=== PATIENT | female | born 1990 | race African-American/Black ===

== ENCOUNTER 2016-08-20 06:49 | Emergency (ER) | payer SELFPAY ==
[~2016-08-20] VITALS: Ht 167.6 cm; Wt 55.0 kg
[~2016-08-20 06:49] MED LIST: DEPO150I IM; FERR324T4 PO
[2016-08-20 06:54] VITALS: BP 116/58; PULSE 92; RESP 16; TEMP 98.1; O2SAT 82
[2016-08-20] MEDS ORDERED: ALBU1.25 NEB (06:57)
[2016-08-20 07:00] VITALS: BP 108/57; PULSE 91; RESP 15; O2SAT 100
[2016-08-20] MEDS ORDERED: predniSONE 50 MG TAB PO ONE (07:00)
[2016-08-20] MEDS ORDERED: ALBU0.08 NEB (07:09)
[2016-08-20] MEDS ORDERED: PRED20 PO (07:09)
--- NOTE | 2016-08-20 07:09 | PD ---
HPI Chief Complaint: Respiratory Distress Time Seen by Provider: 06:58 Travel History International Travel<30 days: No Contact w/Intl Traveler<30days: No Traveled to known affect area: No History of Present Illness HPI This is a 25-year-old female who has a history of asthma who presents to the emergency department with increasing shortness of breath it's been progressing and worsening over the past 2 days, constant, associated with a dry cough. She denies any fevers or chills. She has had some rhinorrhea. She says she tried to use her nebulizer this morning but she didn't have a mask for it so wasn't working. She called EMS and EMS administered to do an abscess and she feels much better. She says she has been hospitalized for her asthma in the past. PFSH Past Medical History Hx Anticoagulant Therapy: No Asthma: Yes Cardiovascular Problems: No Chemotherapy: No Cerebrovascular Accident: No Diabetes: No Diminished Hearing: No Respiratory: Yes (asthma) Immunizations Current: Yes ?: Not LMP: 07/23/16 : 3 Para: 3 Social History Alcohol Use: No Tobacco Use: No Substance Use: No Allergies-Medications (Allergen,Severity, Reaction): Coded Allergies: *MDRO Multi-Drug Resistant Organism (Verified Adverse Reaction, Unknown, ) MRSA (wounds) - 03/24/06, 01/16/12 MRSA PCR screen (nares) negative - 02/20/16 & 02/22/16 Cleared per Infection Control Reported Meds & Prescriptions Reported Meds & Active Scripts Active Reported Albuterol Neb (Albuterol Sulfate) 1.25 Mg/3 Ml Neb 1.25 Mg NEB Q4HR NEB PRN Review of Systems Except as stated in HPI: all other systems reviewed are Neg Physical Exam Narrative GENERAL: Well-nourished, well-developed patient. SKIN: Warm and dry. HEAD: Normocephalic. EYES: No scleral icterus. No injection or drainage. ENT: Rhinorrhea NECK: Supple, trachea midline. CARDIOVASCULAR: Regular rate and rhythm without murmurs. RESPIRATORY: Mild expiratory wheeze, speaking full sentences with no accessory muscle use GASTROINTESTINAL: Abdomen soft, non-tender, nondistended. MUSCULOSKELETAL: No cyanosis, or edema. Data Data Last Documented VS Vital Signs Date Time Temp Pulse Resp B/P Pulse Ox O2 Delivery O2 Flow Rate FiO2 08/20/16 07:00 91 15 108/57 100 Room Air 08/20/16 06:54 98.1 Orders Prednisone (Deltasone) (08/20/16 07:00) [facility] Medical Decision Making Medical Screen Exam Complete: Yes Emergency Medical Condition: Yes Interpretation(s) 100% on room air Differential Diagnosis Acute asthma exacerbation, viral upper respiratory infection, pneumonia Narrative Course This is a 25-year-old female who presents to the emergency department with an exacerbation of her asthma. She improved significantly with bronchodilator treatment from EMS. She was placed on a monitor and her pulse ox was 100% on room air. She is speaking full sentences. I think she is appropriate for outpatient management. She was given a dose of oral prednisone and will be discharged with 4 days of prednisone in addition to some albuterol cartridges. Diagnosis Primary Impression: Acute asthma exacerbation Qualified Code: J45.21 - Mild intermittent asthma with acute exacerbation Patient Instructions: General Instructions Additional Instructions: If you develop severe shortness of breath, chest pain, or difficulty breathing return to the emergency department. Use albuterol every 4 hours for the next 2 days. Then use as needed for wheezing. Complete your course of steroids. Follow up with your primary care physician in 2-3 days if your symptoms have not improved. Med/Other Pt SpecificInfo: Prescription(s) given Scripts Albuterol Neb 2.5 Mg/3 Ml Neb2.5 Mg NEB Q4HR NEB PRN (SHORTNESS OF BREATH) #60 NEBULE Ref 0 Prov:Geraldine Giron MD 08/20/16 Prednisone 20 Mg Tab40 Mg PO DAILY 4 Days Prov:Geraldine Giron MD 08/20/16 Disposition: 01 DISCHARGE HOME Condition: Stable Geraldine Giron MD Aug 20, 2016 07:09
== END 2016-08-20 07:25 | disposition home or self-care (01) ==
LOC: NEPC 06:49
DX: J45.901 Unspecified asthma with (acute) exacerbation (principal)
CPT/HCPCS: 99283; J7512

== ENCOUNTER 2016-11-18 17:10 | Emergency (ER) | payer SELFPAY ==
[~2016-11-18] VITALS: Ht 165.1 cm; Wt 53.8 kg
[~2016-11-18 17:10] MED LIST changes: +ALBU0.08 NEB; +ALBU1.25 NEB; -FERR324T4 PO; +PRED20 PO
[2016-11-18 17:11] VITALS: BP 113/56; PULSE 70; RESP 16; TEMP 98.8; O2SAT 100
--- NOTE | 2016-11-18 17:44 | PD ---
Physical Exam Time Seen by Provider: 17:41 Narrative Pt presents for evaluation of light vaginal bleeding since her last menstrual cycle October 21 and has been having associated lower abdominal pain. Rates it a 6 /10 No vaginal discharge. Does not believe she is , but has unprotected intercourse. Pt is 8 months vaginal . No urinary symptoms. Has history of asthma; otherwise no other medical history. Data Data Last Documented VS Vital Signs Date Time Temp Pulse Resp B/P Pulse Ox O2 Delivery O2 Flow Rate FiO2 11/18/16 17:11 98.8 70 16 113/56 100 Room Air [facility] Medical Record Reviewed: Yes Supervised Visit with WILLIAM: No Narrative Course 25 year old presents to ED for evaluation of vaginal bleeding; light and intermittent since menses in October. Appears well. VSS Condition: Stable Carolyne Knox Nov 18, 2016 17:44
[2016-11-18] MEDS ORDERED: SODIUM CHLORIDE 0.9% FLUSH 10 ML FLUSH IVF PRN (18:45)
--- NOTE | 2016-11-18 18:46 | PD ---
HPI Chief Complaint: Abdominal Pain Time Seen by Provider: 18:43 Travel History International Travel<30 days: No Contact w/Intl Traveler<30days: No Traveled to known affect area: No History of Present Illness HPI Patient is a 25-year-old female presenting to emergency room evaluation of vaginal bleeding, lower abdominal pain. Patient states that she started spotting since her last menstrual period on October 21, 2016. She states the amount of blood is small and notices it when she wipes. She has had unprotected sexual intercourse since that time. She denies any vaginal discharge or odor. She is not on any oral contraception. She states the pain is cramping in nature and located on the suprapubic region to right lower quadrant. She reports her pain as a 5 out of 10 at times. He denies any nausea , vomiting, chest pain, shortness of breath, fever, chills. PFSH Past Medical History Hx Anticoagulant Therapy: No Asthma: Yes Cardiovascular Problems: No Chemotherapy: No Cerebrovascular Accident: No Diabetes: No Diminished Hearing: No Respiratory: Yes (ASTHMA) Immunizations Current: Yes : 3 Para: 3 Social History Alcohol Use: No Tobacco Use: No Substance Use: No Allergies-Medications (Allergen,Severity, Reaction): Coded Allergies: *MDRO Multi-Drug Resistant Organism (Verified Adverse Reaction, Unknown, ) MRSA (wounds) - 03/24/06, 01/16/12 MRSA PCR screen (nares) negative - 02/20/16 & 02/22/16 Cleared per Infection Control Reported Meds & Prescriptions Reported Meds & Active Scripts Active Albuterol Neb (Albuterol Sulfate) 2.5 Mg/3 Ml Neb 2.5 Mg NEB Q4HR NEB PRN Reported Albuterol Neb (Albuterol Sulfate) 1.25 Mg/3 Ml Neb 1.25 Mg NEB Q4HR NEB PRN Review of Systems Except as stated in HPI: all other systems reviewed are Neg General / Constitutional: No: Fever HENT: No: Headaches Cardiovascular: No: Chest Pain or Discomfort Respiratory: No: Shortness of Breath Gastrointestinal: Positive: Abdominal Pain, No: Nausea, Vomiting Genitourinary: Positive: Pelvic Pain, Vaginal Bleeding, No: Dysuria Neurologic: No: Dizziness, Syncope Physical Exam Narrative GENERAL: Well-nourished, well-developed patient. SKIN: Focused skin assessment warm/dry. HEAD: Normocephalic. EYES: No scleral icterus. No injection or drainage. NECK: Supple, trachea midline. No JVD or lymphadenopathy. CARDIOVASCULAR: Regular rate and rhythm without murmurs, gallops, or rubs. RESPIRATORY: Breath sounds equal bilaterally. No accessory muscle use. GASTROINTESTINAL: Abdomen soft, tender to palpation in right suprapubic/lower quadrant. Positive bowel sounds, no rebound, positive guarding. MUSCULOSKELETAL: No cyanosis, or edema. BACK: Nontender without obvious deformity. No CVA tenderness. GENITOURINARY: No dysuria, no frequency, no vaginal discharge. Scant amount of blood noted in vaginal vault and cervix. Mildly tender to palpation on bimanual examination. No masses noted on bimanual examination to the adnexa or uterus. Data Data Last Documented VS Vital Signs Date Time Temp Pulse Resp B/P Pulse Ox O2 Delivery O2 Flow Rate FiO2 11/18/16 22:58 59 16 106/63 11/18/16 17:11 98.8 100 Room Air Orders Ua Includes Microscopic (11/18/16 18:32) Ed Urine Pregnancytest Poc (11/18/16 18:32) Complete Blood Count With Diff (11/18/16 18:42) Basic Metabolic Panel (Bmp) (11/18/16 18:42) Gc And Chlamydia Pcr (11/18/16 18:42) Wet Prep Profile (11/18/16 18:42) Iv Access Insert/Monitor (11/18/16 18:42) Sodium Chloride 0.9% Flush (Ns Flush) (11/18/16 18:45) Thyroid Stimulating Hormone (11/18/16 18:42) Urine Culture (11/18/16 19:46) Us Pelvis Comp W Doppler (11/18/16 ) Labs Laboratory Tests Test 11/18/16 11/18/16 19:10 20:20 White Blood Count 6.7 TH/MM3 Red Blood Count 4.14 MIL/MM3 Hemoglobin 12.3 GM/DL Hematocrit 37.0 % Mean Corpuscular Volume 89.4 FL Mean Corpuscular Hemoglobin 29.8 PG Mean Corpuscular Hemoglobin 33.3 % Concent Red Cell Distribution Width 14.8 % Platelet Count 280 TH/MM3 Mean Platelet Volume 10.4 FL Neutrophils (%) (Auto) 46.8 % Lymphocytes (%) (Auto) 38.2 % Monocytes (%) (Auto) 7.1 % Eosinophils (%) (Auto) 7.3 % Basophils (%) (Auto) 0.6 % Neutrophils # (Auto) 3.1 TH/MM3 Lymphocytes # (Auto) 2.6 TH/MM3 Monocytes # (Auto) 0.5 TH/MM3 Eosinophils # (Auto) 0.5 TH/MM3 Basophils # (Auto) 0.0 TH/MM3 CBC Comment DIFF FINAL Differential Comment Urine Color YELLOW Urine Turbidity HAZY Urine pH 6.0 Urine Specific [place] 1.028 Urine Protein NEG mg/dL Urine Glucose (UA) NEG mg/dL Urine Ketones NEG mg/dL Urine Occult Blood SMALL Urine Nitrite NEG Urine Bilirubin NEG Urine Urobilinogen 2.0 MG/DL Urine Leukocyte Esterase SMALL Urine RBC 1 /hpf Urine WBC 9 /hpf Urine Squamous Epithelial 5 /hpf Cells Urine Mucus FEW /lpf Microscopic Urinalysis Comment Sodium Level 137 MEQ/L Potassium Level 4.2 MEQ/L Chloride Level 107 MEQ/L Carbon Dioxide Level 24.9 MEQ/L Anion Gap 5 MEQ/L Blood Urea Nitrogen 13 MG/DL Creatinine 0.84 MG/DL Estimat Glomerular Filtration 102 ML/MIN Rate Random Glucose 87 MG/DL Calcium Level 8.5 MG/DL Thyroid Stimulating Hormone 0.771 uIU/ML 3rd Gen Chlamydia trachomatis DNA DETECTED (PCR) Neisseria gonorrhoeae DNA NOT DETECTED (PCR) Clue Cells (Wet Prep) NONE SEEN Vaginal Trichomonas (Wet Prep) NONE SEEN Vaginal Yeast (Wet Prep) NONE SEEN MDM Medical Decision Making Medical Screen Exam Complete: Yes Emergency Medical Condition: Yes Interpretation(s) Vital Signs Date Time Temp Pulse Resp B/P Pulse Ox O2 Delivery O2 Flow Rate FiO2 11/18/16 17:11 98.8 70 16 113/56 100 Room Air Differential Diagnosis Dysfunctional uterine bleeding versus urinary tract infection versus STI versus ovarian cyst versus ovarian torsion versus other Narrative Course Patient is a 25-year-old female presenting to the emergency department for evaluation of pelvic pain and vaginal spotting. Vital signs are stable. Labs and imaging ordered and pending. Wet prep is negative, ultrasound pending. Care of patient transferred to my attending physician who will determine patient 's disposition. Condition: Stable Leann Deluca [facility] Nov 18, 2016 18:46
[2016-11-18 19:25] LABS: AUTOMATED NEUTROPHIL # 3.1 TH/MM3 (1.8-7.7); BASOPHIL % 0.6 % (0.0-2.0); EOSINOPHIL # 0.5 TH/MM3 (0-0.4); EOSINOPHIL % 7.3 % (0.0-4.0); HEMO FLAGS DIFF FINAL; LYMPH % 38.2 % (9.0-44.0); LYMPHOCYTE # 2.6 TH/MM3 (1.0-4.8); MEAN CELL VOLUME 89.4 FL (80.0-100.0); MEAN CORPUSCULAR HEMOGLOBIN 29.8 PG (27.0-34.0); MEAN CORPUSCULAR HGB CONC 33.3 % (32.0-36.0); MONO % 7.1 % (0.0-8.0); NEUT % 46.8 % (16.0-70.0); PLATELET COUNT 280 TH/MM3 (150-450); RED BLOOD COUNT 4.14 MIL/MM3 (4.00-5.30); RED CELL DISTRIBUTION WIDTH 14.8 % (11.6-17.2); WHITE BLOOD COUNT 6.7 TH/MM3 (4.0-11.0)
[2016-11-18 19:27] LABS: BLOOD, URINE SMALL (NEG); GLUCOSE,URINE NEG (NEG); KETONE, URINE NEG (NEG); MUCUS URINE FEW /lpf (OCC); NITRITE,URINE NEG (NEG); SQUAMOUS EPITHELIAL CELL URINE 5 /hpf (0-5); URINE COLOR YELLOW (YELLW/STRAW)
[2016-11-18 20:00] LABS: BICARBONATE 24.9 MEQ/L (21.0-32.0); POTASSIUM 4.2 MEQ/L (3.5-5.1)
--- NOTE | 2016-11-18 21:35 | RADRPT ---
EXAM DATE/TIME: 11/18/2016 20:09 [place] COMPARISON: No previous studies available for comparison. INDICATIONS : Pelvic pain. MEDICAL HISTORY : . Miscarriage. Asthma. SURGICAL HISTORY : None. ENCOUNTER: Subsequent ACUITY: 3 days PAIN SCORE: 6/10 LOCATION: Bilateral pelvis MEASUREMENTS: UTERUS: 9.5 x 6.7 x 5.2 cm ENDOMETRIAL STRIPE: 10 mm RIGHT OVARY: 3.7 x 3.2 x 2.7 cm LEFT OVARY: 3.9 x 2.3 x 2.4 cm FINDINGS: UTERUS: The myometrium has homogeneous echotexture without mass. RIGHT OVARY: 2.5 x 2.4 x 2.3 cm cyst containing mild debris. LEFT OVARY: Ovary contains no mass or significant cystic lesion. MISCELLANEOUS: No free fluid. CONCLUSION: 2.5 cm right ovarian cyst. This is probably physiologic in a patient this age. Followup ultrasound co uld be done in 8-12 weeks to confirm resolution if felt clinically indicated. Conrado Schmidt MD on November 18, 2016 at 21:31 Board Certified Radiologist. This report was verified electronically.
--- NOTE | 2016-11-18 22:38 | PD ---
Data Data Last Documented VS Vital Signs Date Time Temp Pulse Resp B/P Pulse Ox O2 Delivery O2 Flow Rate FiO2 11/18/16 17:11 98.8 70 16 113/56 100 Room Air Orders Ua Includes Microscopic (11/18/16 18:32) Ed Urine Pregnancytest Poc (11/18/16 18:32) Complete Blood Count With Diff (11/18/16 18:42) Basic Metabolic Panel (Bmp) (11/18/16 18:42) Gc And Chlamydia Pcr (11/18/16 18:42) Wet Prep Profile (11/18/16 18:42) Iv Access Insert/Monitor (11/18/16 18:42) Sodium Chloride 0.9% Flush (Ns Flush) (11/18/16 18:45) Thyroid Stimulating Hormone (11/18/16 18:42) Urine Culture (11/18/16 19:46) Us Pelvis Comp W Doppler (11/18/16 ) Labs Laboratory Tests Test 11/18/16 11/18/16 19:10 20:20 White Blood Count 6.7 TH/MM3 Red Blood Count 4.14 MIL/MM3 Hemoglobin 12.3 GM/DL Hematocrit 37.0 % Mean Corpuscular Volume 89.4 FL Mean Corpuscular Hemoglobin 29.8 PG Mean Corpuscular Hemoglobin 33.3 % Concent Red Cell Distribution Width 14.8 % Platelet Count 280 TH/MM3 Mean Platelet Volume 10.4 FL Neutrophils (%) (Auto) 46.8 % Lymphocytes (%) (Auto) 38.2 % Monocytes (%) (Auto) 7.1 % Eosinophils (%) (Auto) 7.3 % Basophils (%) (Auto) 0.6 % Neutrophils # (Auto) 3.1 TH/MM3 Lymphocytes # (Auto) 2.6 TH/MM3 Monocytes # (Auto) 0.5 TH/MM3 Eosinophils # (Auto) 0.5 TH/MM3 Basophils # (Auto) 0.0 TH/MM3 CBC Comment DIFF FINAL Differential Comment Urine Color YELLOW Urine Turbidity HAZY Urine pH 6.0 Urine Specific [place] 1.028 Urine Protein NEG mg/dL Urine Glucose (UA) NEG mg/dL Urine Ketones NEG mg/dL Urine Occult Blood SMALL Urine Nitrite NEG Urine Bilirubin NEG Urine Urobilinogen 2.0 MG/DL Urine Leukocyte Esterase SMALL Urine RBC 1 /hpf Urine WBC 9 /hpf Urine Squamous Epithelial 5 /hpf Cells Urine Mucus FEW /lpf Microscopic Urinalysis Comment Sodium Level 137 MEQ/L Potassium Level 4.2 MEQ/L Chloride Level 107 MEQ/L Carbon Dioxide Level 24.9 MEQ/L Anion Gap 5 MEQ/L Blood Urea Nitrogen 13 MG/DL Creatinine 0.84 MG/DL Estimat Glomerular Filtration 102 ML/MIN Rate Random Glucose 87 MG/DL Calcium Level 8.5 MG/DL Thyroid Stimulating Hormone 0.771 uIU/ML 3rd Gen Clue Cells (Wet Prep) NONE SEEN Vaginal Trichomonas (Wet Prep) NONE SEEN Vaginal Yeast (Wet Prep) NONE SEEN MDM Medical Record Reviewed: Yes Supervised Visit with WILLIAM: Yes Narrative Course I, Dr. Graves, have reviewed the advance practice practitioner's documentation and am in agreement, met with the patient face to face, made the diagnosis, and the medical decision making was done by me. *My assessment and Findings: CBC & BMP Diagram 11/18/16 19:10 Urinalysis: Possible UTI Last 24 hours Impressions Pelvis Ultrasound 11/18/16 0000 Signed Impressions: Service Date/Time: Friday, November 18, 2016 20:09 - CONCLUSION: 2.5 cm right ovarian cyst. This is probably physiologic in a patient this age. Followup ultrasound could be done in 8-12 weeks to confirm resolution if felt clinically indicated. Conrado Schmidt MD Patient in the right ovarian cyst. Follow-up in 8-12 weeks discussed. Return precautions discussed. Diagnosis Primary Impression: Right ovarian cyst Additional Impressions: Cystitis Vaginal bleeding Referrals: Primary Care Physician 2 days Additional Instruction: You have a choice when it comes to health care, and we are glad that you chose [facility]. Hopefully, we have met your expectations on today's visit. You are welcome to return to [facility] at any time, as we are committed to meeting the health care needs of our community. Med/Other Pt SpecificInfo: No Change to Meds Disposition: 01 DISCHARGE HOME Condition: Stable Rodney Graves MD Nov 18, 2016 22:38
[2016-11-18 22:58] VITALS: BP 106/63
[2016-11-18 23:26] LABS: CHLAMYDIA PCR DETECTED (NOT DETECT); NEISSERIA PCR NOT DETECTED (NOT DETECT)
== END 2016-11-18 22:57 | disposition home or self-care (01) ==
LOC: NEPD 17:10
DX: N83.201 Unspecified ovarian cyst, right side (principal); N30.90 Cystitis, unspecified without hematuria; N93.9 Abnormal uterine and vaginal bleeding, unspecified; R10.30 Lower abdominal pain, unspecified; J45.909 Unspecified asthma, uncomplicated
CPT/HCPCS: 76856; 80048; 81001; 84443; 84703; 85025; 87086; 87210; 87491; 87591; 93975

== ENCOUNTER 2017-01-28 20:38 | Emergency (ER) | payer MEDICAID ==
[~2017-01-28] VITALS: Ht 167.6 cm; Wt 57.0 kg
[~2017-01-28 20:38] MED LIST changes: -PRED20 PO
[2017-01-28 20:40] VITALS: BP 129/61; PULSE 66; RESP 16; TEMP 97.7; O2SAT 100
--- NOTE | 2017-01-28 20:43 | PD ---
Physical Exam Date Seen by Provider: Jan 28, 2017 Time Seen by Provider: 20:41 Narrative 26 yo female that presents to the ED for evaluation of chest pain and abdominal pain. Started today. No injury. No history of prior. Pain is 6/10. No precipitating factors. No fevers. No SOB. She is . Vital signs stable in triage. Awaiting bed placement. Data Data Last Documented VS Vital Signs Date Time Temp Pulse Resp B/P Pulse Ox O2 Delivery O2 Flow Rate FiO2 01/28/17 20:40 97.7 66 16 129/61 100 Room Air [facility] Medical Record Reviewed: Yes Supervised Visit with WILLIAM: No Lucho Lang Jan 28, 2017 20:43
--- NOTE | 2017-01-28 22:10 | PD ---
HPI Chief Complaint: Chest Pain Time Seen by Provider: 22:10 Travel History International Travel<30 days: No Contact w/Intl Traveler<30days: No Traveled to known affect area: No History of Present Illness HPI The patient is a 26 year old female who presents to the [facility] emergency department with a history of midepigastric abdominal pain that she reports that began at approximately noon today. The patient reports that the pain as a 7 out of 10 in severity currently. She reports that the pain comes and goes. She denies having any alleviating or aggravating factors. She reports that she has not eaten related to the pain. The patient reports that she is also . She reports that she took a positive test on December 29. She has not had her initial point with her [employer]. She is a with 1 miscarriage previously. She reports that 2 days ago she did have some vaginal spotting, however she was not concerned as she had this with her last . She denies having any other vaginal discharge. She is unsure of her blood type. She denies having any nausea or vomiting. She denies having any diarrhea. She reports that she last moved her bowels earlier today. She denies having any blood in her stool or black or tarry stools. The patient reports that the pain as a sharp pain. She denies having any shortness of breath. On review of systems, the patient denies any recent fevers, cough, congestion, neck pain, urinary symptoms, or neurologic symptoms. LMP: In November Past Medical History Narrative Medical The patient's past medical history is significant for asthma. Hx Anticoagulant Therapy: No Asthma: Yes Cardiovascular Problems: No Chemotherapy: No Cerebrovascular Accident: No Diabetes: No Diminished Hearing: No Respiratory: Yes (ASTHMA) Immunizations Current: Yes : 3 Para: 3 Past Surgical History Narrative Surgical The patient's past surgical history is reportedly none. Social History Alcohol Use: No Tobacco Use: No Substance Use: No Allergies-Medications (Allergen,Severity, Reaction): Coded Allergies: *MDRO Multi-Drug Resistant Organism (Verified Adverse Reaction, Unknown, ) MRSA (wounds) - 03/24/06, 01/16/12 MRSA PCR screen (nares) negative - 02/20/16 & 02/22/16 Cleared per Infection Control Reported Meds & Prescriptions Reported Meds & Active Scripts Active Flagyl (Metronidazole) 500 Mg Tab 500 Mg PO BID 7 Days Keflex (Cephalexin) 500 Mg Cap 500 Mg PO Q8H Reported Ventolin Hfa 18 GM Inh (Albuterol Sulfate) 90 Mcg/Act Aer 2 Puff INH Q4-6H PRN Albuterol Neb (Albuterol Sulfate) 1.25 Mg/3 Ml Neb 1.25 Mg NEB Q4HR NEB PRN Review of Systems Except as stated in HPI: all other systems reviewed are Neg General / Constitutional: No: Fever Eyes: No: Visual changes HENT: No: Headaches Cardiovascular: No: Chest Pain or Discomfort Respiratory: No: Shortness of Breath Gastrointestinal: Positive: Abdominal Pain, Indigestion, No: Nausea, Vomiting , Diarrhea, Hematemesis, Hematochezia, Changes in Bowel Habits, Loss of Appetite Genitourinary: Positive: Vaginal Bleeding, No: Dysuria Musculoskeletal: No: Pain Skin: No Rash Neurologic: No: Weakness Psychiatric: No: Depression Endocrine: No: Polydipsia Hematologic/Lymphatic: No: Easy Bruising Physical Exam Narrative General: The patient is a well-developed well-nourished female in no acute distress. Head and Neck exam: Head is normocephalic atraumatic. Eyes: EOMI, pupils are equal round and reactive to light. Nose: Midline septum with pink mucous membranes Mouth: Dentition unremarkable. Moist mucus membranes. Posterior oropharynx is not erythematous. No tonsillar hypertrophy. Uvula midline. Airway patent. Neck: No palpable lymphadenopathy. No nuchal rigidity. No thyromegaly. Cardiovascular: Regular rate and rhythm without murmurs, gallops, or rubs. Lungs: Clear to auscultation bilaterally. No wheezes, rhonchi, or rales. Abdomen: Soft, with midepigastric abdominal discomfort on palpation, suprapubic abdominal discomfort on palpation, no other tenderness on palpation of the other quadrants of the abdomen. No guarding, rebound, or rigidity. Negative [place] sign. No tenderness on palpation of McBurney's point. Normal bowel sounds are audible. Extremities: No clubbing, cyanosis, or edema. 2+ pulses in all 4 extremities. No calf tenderness on palpation. Negative Hom[place] sign. Back: No spinous process tenderness to palpation. No costovertebral angle tenderness to palpation. Neurologic Exam: Grossly nonfocal. Skin Exam: No rash noted. Intact skin that is warm and dry. Gynecologic exam: The patient was placed in the dorsal lithotomy position. Her external genitalia were examined. She had no evidence of rash or lesions. The speculum was placed into her vagina and the cervix was identified. She had a yellow discharge noted discharge. Cervical friability is noted. On Bimanual exam: she has no cervical motion tenderness. No adnexal tenderness or prominence noted on palpation. No uterine tenderness, however enlargement is noted on palpation. Data Data Last Documented VS Vital Signs Date Time Temp Pulse Resp B/P Pulse Ox O2 Delivery O2 Flow Rate FiO2 01/28/17 20:40 97.7 66 16 129/61 100 Room Air Orders Beta Hcg (Quant/Titer) (01/28/17 22:18) Complete Blood Count With Diff (01/28/17 22:18) Comprehensive Metabolic Panel (01/28/17 22:18) Gc And Chlamydia Pcr (01/28/17 22:18) Complete Rh (01/28/17 22:18) Wet Prep Profile (01/28/17 22:18) Urinalysis - C+S If Indicated (01/28/17 22:18) Iv Access Insert/Monitor (01/28/17 22:18) Ecg Monitoring (01/28/17 22:18) Sodium Chlor 0.9% 1000 Ml Inj (Ns 1000 M (01/28/17 22:18) Ed Urine Pregnancytest Poc (01/28/17 22:18) Electrocardiogram (01/28/17 22:18) Lipase (01/28/17 22:18) Magnesium (Mg) (01/28/17 22:18) Urine Culture (01/28/17 22:45) Ceftriaxone Inj (Rocephin Inj) (01/29/17 00:15) Ed Poc Ultrasound (01/29/17 00:07) Us Pelvis Preg(Sgl/ Gestat) (01/29/17 ) Azithromycin Powd Pack (Zithromax Powd P (01/29/17 01:30) Labs Laboratory Tests Test 01/28/17 01/28/17 01/29/17 22:30 22:45 00:20 White Blood Count 10.7 TH/MM3 Red Blood Count 3.84 MIL/MM3 Hemoglobin 11.5 GM/DL Hematocrit 34.3 % Mean Corpuscular Volume 89.3 FL Mean Corpuscular Hemoglobin 30.0 PG Mean Corpuscular Hemoglobin 33.6 % Concent Red Cell Distribution Width 14.2 % Platelet Count 294 TH/MM3 Mean Platelet Volume 10.2 FL Neutrophils (%) (Auto) 65.3 % Lymphocytes (%) (Auto) 26.9 % Monocytes (%) (Auto) 6.1 % Eosinophils (%) (Auto) 1.2 % Basophils (%) (Auto) 0.5 % Neutrophils # (Auto) 7.0 TH/MM3 Lymphocytes # (Auto) 2.9 TH/MM3 Monocytes # (Auto) 0.7 TH/MM3 Eosinophils # (Auto) 0.1 TH/MM3 Basophils # (Auto) 0.1 TH/MM3 CBC Comment DIFF FINAL Differential Comment Sodium Level 135 MEQ/L Potassium Level 3.7 MEQ/L Chloride Level 105 MEQ/L Carbon Dioxide Level 20.3 MEQ/L Anion Gap 10 MEQ/L Blood Urea Nitrogen 14 MG/DL Creatinine 0.48 MG/DL Estimat Glomerular Filtration 192 ML/MIN Rate Random Glucose 83 MG/DL Calcium Level 8.6 MG/DL Magnesium Level 1.9 MG/DL Total Bilirubin 0.5 MG/DL Aspartate Amino Transf 14 U/L (AST/SGOT) Alanine Aminotransferase 16 U/L (ALT/SGPT) Alkaline Phosphatase 47 U/L Total Protein 7.8 GM/DL Albumin 3.5 GM/DL Lipase 319 U/L Human Chorionic Gonadotropin, [id number] MIU/ML Quant Blood Type B POSITIVE Rho(D) Type POSITIVE Urine Color YELLOW Urine Turbidity HAZY Urine pH 6.0 Urine Specific [place] 1.033 Urine Protein TRACE mg/dL Urine Glucose (UA) NEG mg/dL Urine Ketones NEG mg/dL Urine Occult Blood NEG Urine Nitrite NEG Urine Bilirubin NEG Urine Urobilinogen LESS THAN 2.0 MG/DL Urine Leukocyte Esterase LARGE Urine RBC 5 /hpf Urine WBC 13 /hpf Urine Squamous Epithelial 5 /hpf Cells Urine Bacteria RARE /hpf Urine Mucus MANY /lpf Microscopic Urinalysis Comment CULTURE INDICATED Clue Cells (Wet Prep) NONE SEEN Vaginal Trichomonas (Wet Prep) PRESENT Vaginal Yeast (Wet Prep) NONE SEEN Chlamydia trachomatis DNA NOT DETECTED (PCR) Neisseria gonorrhoeae DNA NOT DETECTED (PCR) MDM Medical Decision Making Medical Screen Exam Complete: Yes Emergency Medical Condition: Yes Medical Record Reviewed: Yes Interpretation(s) Last Impressions Obstetrics Ultrasound 01/29/17 0000 Signed Impressions: Service Date/Time: Sunday, January 29, 2017 00:18 - CONCLUSION: Viable intrauterine dated between 9 and 10 weeks. Varinder Larkin MD Differential Diagnosis Gastritis, versus peptic ulcer disease, versus acid reflux, versus cystitis, versus ectopic , versus cervicitis, versus gonorrhea, versus chlamydia , versus trichomoniasis, versus yeast vaginitis Narrative Course During the course of the patients emergency department visit, the patients history, examination, and differential diagnosis were reviewed with the patient. The patient had IV access obtained and blood work sent for analysis. The patient was placed on a secured entrance monitor with oximetry and blood pressure monitoring. A pelvic examination will be done. The patient was initially provided normal saline 1 L IV fluid bolus. The patients laboratory studies were reviewed and remarkable for a white count of 10.7, hemoglobin 11.5, platelets 294 with a normal differential. CMP is remarkable for sodium of 135, CO2 20.3, creatinine 0.48, AST 14, lipase 319, quantitative beta hCG 163,202, urinalysis shows large leukocyte esterase 5 RBCs 13 wbc's rare bacteria and many mucus. The patient was given Rocephin 1 g IV, Zithromax 1 g by mouth due to cervicitis noted on pelvic exam. Wet prep was positive for Trichomonas Radiology studies were reviewed and remarkable for an ultrasound reveals a viable intrauterine between 9 and 10 weeks. The patient is resting comfortably and feels better, is alert and in no distress. The patients results and examination findings were discussed with the patient. The repeat examination is unremarkable and benign. The history, exam, diagnostic testing, and current condition do not suggest any significant pathology to warrant further testing, continued ED treatment, admission, or surgical evaluation at this point. The vital signs have been stable. The patient does not have uncontrollable pain, intractable vomiting, or other significant symptoms. The patient's condition is stable and appropriate for discharge. The patient will pursue further outpatient evaluation with a primary care physician or other designated or consulting physician as indicated in the discharge instructions. The patient expressed understanding and was agreeable with this plan. Diagnosis Primary Impression: Abdominal pain Qualified Code: R10.13 - Epigastric pain Additional Impressions: Trichomoniasis Urinary tract infection Qualified Code: N30.00 - Acute cystitis without hematuria Urinary tract infection affecting Referrals: [facility] Patient Instructions: General Instructions, Trichomoniasis (ED), Urinary Tract Infection in (ED) Med/Other Pt SpecificInfo: Prescription(s) given Scripts Metronidazole (Flagyl)500 Mg [id number] Mg PO BID 7 Days Ref 0 Prov:Tiesha Alvarado MD 01/29/17 Cephalexin (Keflex)500 Mg [id number] Mg PO Q8H #30 CAP Ref 0 Prov:Tiesha Alvarado MD 01/29/17 Disposition: 01 DISCHARGE HOME Condition: Stable Tiesha Alvarado MD Jan 28, 2017 22:10
[2017-01-28] MEDS ORDERED: VENTAER INH (22:17)
[2017-01-28] MEDS ORDERED: SODIUM CHLOR 0.9% 1000 ML INJ 1,000 ML IV ONE (22:18)
[2017-01-28 22:51] LABS: BASOPHIL # 0.1 TH/MM3 (0-0.2); BASOPHIL % 0.5 % (0.0-2.0); EOSINOPHIL # 0.1 TH/MM3 (0-0.4); EOSINOPHIL % 1.2 % (0.0-4.0); HEMATOCRIT 34.3 % (35.0-46.0); HEMO FLAGS DIFF FINAL; LYMPH % 26.9 % (9.0-44.0); LYMPHOCYTE # 2.9 TH/MM3 (1.0-4.8); MEAN CELL VOLUME 89.3 FL (80.0-100.0); MEAN CORPUSCULAR HGB CONC 33.6 % (32.0-36.0); MONO % 6.1 % (0.0-8.0); NEUT % 65.3 % (16.0-70.0); PLATELET COUNT 294 TH/MM3 (150-450); RED BLOOD COUNT 3.84 MIL/MM3 (4.00-5.30); RED CELL DISTRIBUTION WIDTH 14.2 % (11.6-17.2); WHITE BLOOD COUNT 10.7 TH/MM3 (4.0-11.0)
[2017-01-28 23:14] LABS: ANION GAP 10 MEQ/L (5-15); BICARBONATE 20.3 MEQ/L (21.0-32.0); BLOOD UREA NITROGEN 14 MG/DL (7-18); CHLORIDE 105 MEQ/L (98-107); GLOMERULAR FILTRATION RATE 192 ML/MIN (>89); MAGNESIUM 1.9 MG/DL (1.5-2.5); POTASSIUM 3.7 MEQ/L (3.5-5.1); SODIUM (NA) 135 MEQ/L (136-145)
[2017-01-28 23:15] LABS: ALT (GPT) 16 U/L (10-53); AST (GOT) 14 U/L (15-37)
[2017-01-28 23:16] LABS: BACTERIA, URINE RARE /hpf; BLOOD, URINE NEG (NEG); COMMENT (UR) CULTURE INDICATED; CULTURE IF INDICATED CULTURE INDICATED; GLUCOSE,URINE NEG (NEG); KETONE, URINE NEG (NEG); MUCUS URINE MANY /lpf (OCC); NITRITE,URINE NEG (NEG); SQUAMOUS EPITHELIAL CELL URINE 5 /hpf (0-5); URINE COLOR YELLOW (YELLW/STRAW)
[2017-01-28 23:33] LABS: ALKALINE PHOSPHATASE 47 U/L (45-117); BETA HCG QUANT 163202 MIU/ML (0-5); TOTAL BILIRUBIN ADULT 0.5 MG/DL (0.2-1.0)
[2017-01-29] MEDS ORDERED: cefTRIAXone INJ 1,000 MG in SODIUM CHLORIDE 0.9% INJ 100 ML IV ONE (00:15)
--- NOTE | 2017-01-29 01:28 | RADRPT ---
EXAM DATE/TIME: 01/29/2017 00:18 [facility] COMPARISON: No previous studies available for comparison. INDICATIONS : Pelvic and chest pain. LAB(S): Beta-hC,202 MEDICAL HISTORY : . Asthma. MRSA. SURGICAL HISTORY : None. ENCOUNTER: Initial ACUITY: 1 day PAIN SCORE: 7/10 LOCATION: Bilateral pelvis MEASUREMENTS: UTERUS: 11.1 x 10. x 9.4 cm ENDOMETRIAL STRIPE: >20 mm RIGHT OVARY: 3.2 x 3.5 x 4.5 cm LEFT OVARY: 2.4 x 2.8 x 1.1 cm CROWN RUMP LENGTH: 2.4 cm = 9 WKS 0 DAYS FHR: 167 BPM FINDINGS: An intrauterine is documented with gestational sac size characteristic of 10 week, 4 day ge station. A sac is seen. A pole is identified measuring 2.4 cm in length, characteristic of 9 week, 0 day. heart rate of 167 beats per minute is documented with Doppler. There is a 1.5 cm hypoechoic area adjacent to the inferior gestational sac, possible subchorionic hemorrhage. Simple cysts are seen in the right ovary measuring 3.9 x 2.2 cm. Homogeneous echotexture in the left ovary. No evidence of free fluid. CONCLUSION: Viable intrauterine dated between 9 and 10 weeks. Varinder Larkin MD on January 29, 2017 at 1:22 Board Certified Radiologist. This report was verified electronically.
[2017-01-29] MEDS ORDERED: AZITHROMYCIN PWD FOR SUSP 1 GM PACKET PO ONE (01:30)
[2017-01-29] MEDS ORDERED: CEPH-460 PO (01:36)
[2017-01-29] MEDS ORDERED: METR-1 PO (01:36)
[2017-01-29 02:45] LABS: CHLAMYDIA PCR NOT DETECTED (NOT DETECT); NEISSERIA PCR NOT DETECTED (NOT DETECT)
--- NOTE | 2017-01-29 23:12 | EKG ---
Date Performed: 01/29/2017 Time Performed: 02:04:58 PTAGE: 26 years EKG: SINUS BRADYCARDIA WITH SINUS ARRHYTHMIA BORDERLINE ECG PREVIOUS TRACING : 02/15/1993 22.31 Compared to the previous tracing tachycardia no longer pres ent DOCTOR: Jessica Hodge Interpretating Date/Time 01/29/2017 23:10:52
== END 2017-01-29 02:30 | disposition home or self-care (01) ==
LOC: NEPE 20:38
DX: O26.891 Other specified pregnancy related conditions, first trimester (principal); R10.13 Epigastric pain; A59.01 Trichomonal vulvovaginitis; O23.11 Infections of bladder in pregnancy, first trimester; R94.31 Abnormal electrocardiogram [ECG] [EKG]; Z87.09 Personal history of other diseases of the respiratory system; Z3A.09 9 weeks gestation of pregnancy
CPT/HCPCS: 76801; 80053; 81001; 83690; 83735; 84702; 85025; 86901; 87086; 87210; 87491; 87591; 93005; 96361; 96365; 99285; J0696; J7030

== ENCOUNTER 2017-08-14 05:48 | Emergency (ER) | payer MEDICAID ==
[~2017-08-14 05:48] MED LIST changes: -ALBU0.08 NEB; +CEPH-460 PO; +METR-1 PO; +VENTAER INH
[2017-08-14 05:51] VITALS: BP 104/60; PULSE 78; RESP 18; TEMP 99.7; O2SAT 100
[2017-08-14] MEDS ORDERED: AMOX500C PO (06:01)
--- NOTE | 2017-08-14 06:09 | PD ---
HPI Chief Complaint: Respiratory Symptoms Time Seen by Provider: 05:56 Travel History International Travel<30 days: No Contact w/Intl Traveler<30days: No Traveled to known affect area: No History of Present Illness HPI 26-year-old female complains of pain and swelling of the right side face. Patient states that the symptoms started this morning. Patient states the pain is sharp pain localized to right side of face. Patient denies any pain radiation. Patient denies any fever chills. Patient denies any injury. Patient's 39 week . Patient complains of intermittent shortness of breath recently. Patient denies abdominal pain. Patient denies any vaginal discharge or bleeding. Patient states the fetus active. PFSH Past Medical History Hx Anticoagulant Therapy: No Asthma: Yes Cardiovascular Problems: No Chemotherapy: No Cerebrovascular Accident: No Diabetes: No Diminished Hearing: No Respiratory: Yes (ASTHMA) Immunizations Current: Yes Influenza Vaccination: No ?: LMP: 39 weeks : 6 Para: 4 Miscarriage: 1 Social History Alcohol Use: No Tobacco Use: No Substance Use: No Allergies-Medications (Allergen,Severity, Reaction): Coded Allergies: *MDRO Multi-Drug Resistant Organism (Verified Adverse Reaction, Unknown, ) MRSA (wounds) - 03/24/06, 01/16/12 MRSA PCR screen (nares) negative - 02/20/16 & 02/22/16 Cleared per Infection Control Reported Meds & Prescriptions Reported Meds & Active Scripts Active Amoxicillin 500 Mg Cap 500 Mg PO TID Reported Ventolin Hfa 18 GM Inh (Albuterol Sulfate) 90 Mcg/Act Aer 2 Puff INH Q4-6H PRN Albuterol Neb (Albuterol Sulfate) 1.25 Mg/3 Ml Neb 1.25 Mg NEB Q4HR NEB PRN Review of Systems General / Constitutional: No: Fever Eyes: No: Visual changes HENT: No: Headaches Cardiovascular: No: Chest Pain or Discomfort Respiratory: No: Shortness of Breath Gastrointestinal: No: Abdominal Pain Genitourinary: No: Dysuria Musculoskeletal: No: Pain Skin: No Rash Neurologic: No: Weakness Psychiatric: No: Depression Endocrine: No: Polydipsia Hematologic/Lymphatic: No: Easy Bruising Physical Exam Narrative GENERAL: Well-nourished, well-developed patient. SKIN: Focused skin assessment warm/dry. HEAD: Normocephalic. EYES: No scleral icterus. No injection or drainage. NECK: Supple, trachea midline. No JVD or lymphadenopathy. CARDIOVASCULAR: Regular rate and rhythm without murmurs, gallops, or rubs. RESPIRATORY: Breath sounds equal bilaterally. No accessory muscle use. GASTROINTESTINAL: Abdomen soft, non-tender. heart tone 160. MUSCULOSKELETAL: No cyanosis, or edema. BACK: Nontender without obvious deformity. No CVA tenderness. Patient has soft tissue swelling tenderness over the right angle of the mandible in from the right ear. TM clear. Ear canal normal. Throat: Nonerythematous. Data Data Last Documented VS Vital Signs Date Time Temp Pulse Resp B/P (MAP) Pulse Ox O2 Delivery O2 Flow Rate FiO2 08/14/17 05:51 99.7 78 18 104/60 (75) 100 Room Air MDM Medical Decision Making Medical Screen Exam Complete: Yes Emergency Medical Condition: Yes Differential Diagnosis Differential diagnosis including sialoadenitis, blocked salivary gland duct, cellulitis, dental abscess. Narrative Course 26-year-old female with sudden onset of pain swelling right side of face. Patient is afebrile. Diagnosis Primary Impression: Sialadenitis Patient Instructions: General Instructions Additional Instructions: Amoxicillin as directed. Tylenol for pain. Follow-up with ENT and personal physician. Med/Other Pt SpecificInfo: Prescription(s) given Scripts Amoxicillin (Amoxicillin) 500 Mg Cap 500 MG PO TID for Infection, #21 CAP 0 Refills Prov: Tristin Troy MD 08/14/17 Disposition: 01 DISCHARGE HOME Condition: Stable Tristin Troy MD Aug 14, 2017 06:09
[2017-08-14] MEDS ORDERED: ACETAMINOPHEN 325 MG TAB PO ONE (06:30)
--- NOTE | 2017-08-15 11:47 | EKG ---
Date Performed: 08/14/2017 Time Performed: 05:52:21 PTAGE: 26 years EKG: Sinus rhythm LOW QRS VOLTAGE IN PRECORDIAL LEADS BORDERLINE ECG Compared to PREVIOUS TRACING , sinus bradycardia has resolved. The low QRS voltage is new and pericar dial effusion, obesity and exacerbation of COPD should be excluded. PREVIOUS TRACING DOCTOR: Kacie Ravi Interpretating Date/Time 08/15/2017 11:47:05
== END 2017-08-14 06:22 | disposition home or self-care (01) ==
LOC: NEPE 05:48
DX: O99.613 Diseases of the digestive system complicating pregnancy, third trimester (principal); K11.20 Sialoadenitis, unspecified; O99.513 Diseases of the respiratory system complicating pregnancy, third trimester; J45.909 Unspecified asthma, uncomplicated; O26.893 Other specified pregnancy related conditions, third trimester; R94.31 Abnormal electrocardiogram [ECG] [EKG]; Z3A.39 39 weeks gestation of pregnancy
CPT/HCPCS: 93005; 99283